=== PATIENT | female | born 1955 | race Caucasian/White ===

== ENCOUNTER 2022-01-01 13:30 | Outpatient (RCR) | payer BC, SELFPAY | END 2022-03-23 14:59 | disposition home or self-care (01) | PROVIDERS: PCP Family Medicine; Visit Provider Registered Nurse Neuroscience | DX: R53.1 Weakness (principal); Z51.89 Encounter for other specified aftercare | CPT/HCPCS: 97110; 97112; 97161 ==

== ENCOUNTER 2022-08-15 16:45 | Outpatient (RCR) | payer MEDICARE, BC, OTHER, SELFPAY ==
--- NOTE | 2022-06-22 10:46 | OT.OPOE ---
OT Outpatient Ortho Eval OT Outpatient Ortho Eval Start: 06/21/22 18:41 Freq: Status: Active Protocol: Document 06/22/22 07:26 AMB (Rec: 06/22/22 10:43 AMB [id number]) E-signed By Debbie Clifton, OTR/L, CLT, RUG CLEANER OT OP Ortho Eval Details Type Type Eval Complexity Low Insurance Information Insurance Information [employer] Outpatient History/Precautions Current Condition/Medical Diagnosis Referring Provider Dr Jovel Treatment Diagnosis Closed RUE wrist fx, CTR Date of Onset 05/04/22 (s/p 7 weeks) Other Conditions Pt slipped and fell on 05/04/22 while going out to get the mail. She was seen in ER and provided with a splint, ortho consult with orthopedics on and was placed in a cast which was replaced on 05/17/22 as it was loose. Cast was discontinued on 06/05/22. According to ortho notes, pt does have a 20 deg dorsal angulation which may impair ~ 2o deg of wrist flexion. Medical/Functional History Medical History Reviewed Yes Prior Level of Function/Mobility Full, pain-free use of her RUE Social History Employment Status Retired Oriented Mental Status No Concerns Ortho Subjective Subjective Subjective Pt states she is doing well, occasional soreness in her wrist, denies any paresthesia and has not been having any sharp pains. Pt uses her splint with activities. Pt states she has been sleeping without brace but then has more soreness in the morning and sometimes at night. Pain at is worst is 5/10 and usually in the morning when she sleeps without splint. Recommended she wear splint at night to see if this will help. Pain is 0/10 at rest. Elbow Goniometric Elbow Right Active Flexion (135-150 degrees) 150 Active Extension (0 degrees) 0 H Active Pronation 25 Active Supination 70 Wrist Goniometric Wrist Right Active Flexion (70-90 degrees) 38 L Active Extension (60-70 degrees) 43 L Active Ulnar Deviation (20-30 degrees) 15 L Active Radial Deviation (15-20 degrees) 20 Hand Pinch/Auto Inspector Strength Comments Comments 06/22/22 Pt demonstrates full composite fist and full opposition to DPC. No obvious swelling is noted. OT Objective Data Hand Hand Dominance Right OT Problems Problems Problems Decreased Strength,Decreased Range of Motion,Decreased Dexterity,Decreased Fine Motor ,Decreased Coordination, Lifting,Gripping,Pinching Other Problems Writing,Opening Containers, Dressing Patient Potential Good Assessment Assessment Assessment Pt presents to OT with pain, weakness, and limited AROM of the RUE which limits her abilities to complete ADLs and IADLs that require use of her RUE. Pt will benefit from skilled OT intervention to address impairments and restore full, pain-free use of her RUE. Occupational Therapy Treatment Plan - OP Potential Rehabilitation Potential Good Set Goals Goals Set with Patient Yes Goals Goals 1. Pt will be independent and compliant with HEP in order to resume full, pain-free use of the involved UE. 3 weeks 2. Pt will demonstrate full, pain-free AROM of the involved UE in order to improve ability to grasp and hold. 6 weeks 3. Pt will demonstrate pain- free behavioral technician and pinch strength comparable to the uninvolved side in order to improve functional grasp, hold, reach, and lifting ability needed to complete self-care, leisure tasks, and work activities. 8 weeks. Target Date 08/22/22 Progress set Treatment Plan Treatment Plan Evaluation,Edema Control,Joint Mobilization,Manual Therapy, Therapeutic Exercise, Therapeutic Activities,Self- Care/Home Management,Education Expected Frequency 1-2x Week Expected Duration 6-8 Weeks Certification Certification I Certify That: Therapy Services Provided, Therapy Plan Established, Therapy Plan Reviewed Recertification Information Recertification Information Initial Certification Date 06/22/22 Recertification Due Date 09/20/22 Reasons to Continue Skilled Therapy Initiated OT today to address pain, weakness, and limited AROM of the RUE following DR winston. Rehabilitation Potential Good Continued Plan of Care and Interventions Please see above Provider Signature Shows Agreement With POC & Medical Necessity Physician Comment/Change Comment or Changes Physician NPI Number #
== END 2022-10-26 16:17 | disposition home or self-care (01) ==
PROVIDERS: Visit Provider Orthopaedic Surgery Sports Medicine
DX: S62.101A Fracture of unspecified carpal bone, right wrist, initial encounter for closed fracture (principal); Z51.89 Encounter for other specified aftercare
CPT/HCPCS: 97110; 97140; 97165; X5282

== ENCOUNTER 2023-06-06 07:40 | Emergency (ER) | payer MEDICARE, BC, SELFPAY ==
[2023-06-06 08:00] VITALS: BP 132/81; PULSE 78; RESP 18; TEMP 36.9; O2SAT 98; BMI 25.1
--- NOTE | 2023-06-06 08:17 | XR_ITS ---
Patient: KELLY CHACKO Facility:?[facility] Patient ID:?[id number] Site Patient ID:?[id number]. Site :?[id number] Study:?XRay-Spine Lumbar 3V-06/06/2023 9:25:58 AM Ordering Physician:?CECIITER Final Report: INDICATION: Pain, no trauma. COMPARISON: None available. TECHNIQUE: Three views of the lumbar spine. FINDINGS: There is a lumbarization of the S1 vertebral body with an S1-S2 disc space and pseudoarticulation of the left S1 transverse process with the sacrum. Lumbar levocurvature with apex at L3-L4. Sagittal alignment is maintained. No definite acute fracture is visualized. Multilevel intervertebral disc space narrowing, which is most pronounced and moderate from L4-S1. Moderate lower lumbar facet arthropathy. Mild degenerative changes of the sacroiliac joints. Possible cholelithiasis. IMPRESSION: 1. 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 2. Moderate lower lumbar degenerative disc disease and facet arthropathy. Dictated by Saida Gan MD @ 06/06/2023 9:41:56 AM Signed by:?Saida Gan MD @06/06/2023 9:41:56 AM (Electronic Signature)
--- NOTE | 2023-06-06 08:18 | ED_ITS ---
HPI - General Adult General Chief complaint: Extremity Pain/Injury, Lower Stated complaint: R leg pain Time Seen by Provider: 06/06/23 08:13 History of Present Illness HPI narrative: Patient is a 67-year-old woman with history of sciatica presents with pain in her lumbar spine with radiation down her right leg. Her symptoms have been been present for the last 3 days. She has no bowel or bladder symptoms no fevers no chills. Her symptoms began after chiropractic manipulation. She be is able to ambulate without any difficulty and states the pain is moderate. Pain extends from the buttocks to the thigh to posterior to the right knee. She has no significant swelling or other significant findings. Related Data Home Medications Medication Instructions Recorded Confirmed pravastatin 40 mg tablet 40 mg PO QHS 05/04/22 06/06/23 venlafaxine 75 mg capsule,extended 75 mg PO DAILY 05/04/22 06/06/23 release 24 hr Allergies Allergy/AdvReac Type Severity Reaction Status Date / Time No Known Drug Allergies Allergy Verified 06/05/22 08:31 Review of Systems Status of ROS: Reports: 10 or more systems reviewed and unremarkable except as noted in History and below [facility] Medical History Tinnitus ?H93.19 - Tinnitus, unspecified ear (ICD-10) Ear problem ?H93.90 - Unspecified disorder of ear, unspecified ear (ICD-10) Altered mental status ?R41.82 - Altered mental status, unspecified (ICD-10) Social History Smoking Status: Never smoker How often do you have a drink containing alcohol: never AUDIT-C Alcohol total score: 0 Non-prescribed substance use: denies use Exam Narrative: Exam Narrative: EXAM GENERAL: Patient appears comfortable and well. EYES: No scleral icterus. LYMPH: No supraclavicular or cervical lymphadenopathy. SKIN: Visible skin seen during exam normal or with benign process only. EXT: No dependent lower extremity pedal edema. HEART: Regular rate and rhythm with no murmurs, rubs, or gallops. LUNGS: Clear to auscultation bilaterally with no crackles or wheezes. ABD: Soft, non tender, non distended. PSYCH: Good eye contact, speech is not pressured. Neurologic cranial nerves 2-12 grossly intact no focal defects I would say strength in the right lower extremity is 4/5. Const: Vital Signs, click to edit/add: Vital Signs - 24 hr 06/06/23 08:00 Temperature 98.5 F Pulse Rate [Pulse Oximeter] 78 Respiratory Rate 18 Blood Pressure [Ri ght Upper Arm] 132/81 Pulse Oximetry 98 Oxygen Delivery Me thod Room Air Course Course ED Course: X-ray lumbar spine pending. Vital Signs Vital signs: Initial Vital Signs Temperature 98.5 F 06/06/23 08:00 Temperature Source Temporal Artery Scan 06/06/23 08:00 Pulse Rate 78 06/06/23 08:00 Respiratory Rate 18 06/06/23 08:00 Blood Pressure 132/81 06/06/23 08:00 Blood Pressure Mean 98 06/06/23 08:00 Blood Pressure Position Sitting 06/06/23 08:00 Pulse Oximetry 98 06/06/23 08:00 Oxygen Delivery Method Room Air 06/06/23 08:00 Vital Signs Temperature 98.5 F 06/06/23 08:00 Pulse Rate 78 06/06/23 08:00 Respiratory Rate 18 06/06/23 08:00 Blood Pressure 132/81 06/06/23 08:00 Pulse Oximetry 98 06/06/23 08:00 Oxygen Delivery Method Room Air 06/06/23 08:00 Temperature 98.5 F 06/06/23 08:00 Pulse Rate 78 06/06/23 08:00 Respiratory Rate 18 06/06/23 08:00 Blood Pressure 132/81 06/06/23 08:00 Pulse Oximetry 98 06/06/23 08:00 Oxygen Delivery Method Room Air 06/06/23 08:00 Medications Administered Medications: Discontinued Medications Generic Name Dose Route Start Last Admin Trade Name Freq PRN Reason Stop Dose Admin Cyclobenzaprine HCl 10 mg 06/06/23 10:57 06/06/23 11:59 Cyclobenzaprine Hcl 10 Mg Tablet PO 06/06/23 10:58 10 mg ONCE ONE Administration Ketorolac Tromethamine 30 mg 06/06/23 08:29 06/06/23 08:44 Ketorolac 30 Mg/Ml Inj IM 06/06/23 08:30 30 mg ONCE ONE Administration Oxycodone HCl 5 mg 06/06/23 10:26 06/06/23 10:40 Oxycodone 5 Mg Tablet PO 06/06/23 10:27 5 mg ONCE ONE Administration Medical Decision Making MDM Narrative Medical decision making narrative: Patient is a 67-year-old woman who presents with right-sided sciatica. I did do an x-ray of her lumbar spine which showed nonspecific findings. Did proceed due to the severity of her symptoms with a MRI which showed L3-L4 bursitis with stenosis at L4-L5 with L5 impingement. Patient has been treated with oxycodone and cyclobenzaprine here in the emergency room with only modest improvement. At this time patient has no bowel or bladder symptoms no signs of cauda equina. I did make arrangements for him see her primary doctor back and get a referral for possible injection. In the interim I did place her on a short course of prednisone as well as oxycodone with no driving or using machinery. She is accompanied by her sister who can drive her today. Differential diagnosis includes but not limited to cauda equina disc herniations spondylolisthesis spondylitis. Discharge Plan Discharge Clinical Impression: Sciatica Patient Disposition: Home, Self-Care Condition: Stable Instructions: Sciatica (ED) Additional Instructions: Oxycodone prednisone as directed No driving. You have bursitis between L3 and L4 appear lumbar spine and stenosis between L4 and L5 with L5 impingement syndrome. I would recommend that she contact her doctor and schedule consult with Dr. Alphonse [facility]ule[facility] at [facility] for discussion of possible injection. Activity Level: No Restrictions Discharge Diet: Regular Prescriptions: No Action pravastatin 40 mg tablet 40 mg PO QHS venlafaxine 75 mg capsule,extended release 24hr 75 mg PO DAILY Follow Up/Referrals: Provider,Not a Local [Referring] - Stand Alone Forms: [employer] Info Instructions
[2023-06-06] MEDS: KETOROLAC 30 MG/ML inj IM (08:44)
--- NOTE | 2023-06-06 09:48 | MR_ITS ---
Patient: KELLY CHACKO Facility:?[facility] Patient ID:?[id number] Site Patient ID:?[id number]. Site :?[id number] Study:?MRI-Spine W/O-06/06/2023 12:02:22 PM Ordering Physician:MAURICIO EVANGELISTA Final Report: Indication: Low back pain radiating into the right leg Technique: Multiplanar, multisequence, MRI of the lumbar spine, obtained without contrast. Comparison: Lumbar spine x-ray from same day, MRI lumbar spine report 10/19/2021 Findings: S-shaped thoracolumbar curvature, with preserved lumbar lordosis. For numbering purposes, and to remain consistent with prior imaging, the S1 segment is transitional and partially lumbarized, followed by a rudimentary STIR hyperintense S1-2 intervertebral disc. Mild chronic anterior wedge configuration of L1, and mild chronic superior endplate deformity with superimposed Schmorl`s node at L2. No acute osseous abnormality. Unremarkable bone marrow signal. The conus medullaris terminates at L2. Trace fluid signal at the L3-4 interspinous space, suggestive of bursitis. 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 Included SI joints are unremarkable. T12-L1: Sagittal images demonstrate facet arthropathy without significant neural foraminal or spinal canal stenosis. L1-L2: Mild diffuse disc bulge, shallow left central protrusion. No significant neural foraminal or spinal canal stenosis. L2-L3: Mild diffuse disc bulge. No significant neural foraminal or spinal canal stenosis. L3-L4: Mild diffuse disc bulge, mild facet arthropathy, interspinous bursitis. Mild bilateral neural foraminal narrowing. Mild spinal canal narrowing. L4-L5: Mild diffuse disc bulge, mild facet arthropathy. Mild-moderate bilateral neural foraminal narrowing. Right lateral recess stenosis, potentially impinging the descending right L5 nerve root. No significant central spinal canal stenosis. L5-S1: Mild diffuse disc bulge, left asymmetric facet arthropathy. No right, mild-moderate left neural foraminal narrowing. Left lateral recess stenosis potential impingement of the descending left S1 nerve root. No central spinal canal stenosis. S1-S2: S1 lumbarization, rudimentary disc space, right asymmetric facet arthropathy. No significant neural foraminal or spinal canal stenosis. Impression: 1. For numbering purposes, the S1 segment is transitional and partially lumbarized, followed by rudimentary STIR hyperintense S1-S2 intervertebral disc. 2. Thoracolumbar S-shaped curvature. Lumbar spondylosis, not significantly progressed relative to 10/19/2021. 3. At L3-L4, mild bilateral neural foraminal narrowing, mild spinal canal narrowing, and interspinous bursitis. 4. At L4-L5, mild-moderate bilateral neural foraminal narrowing, and right lateral recess stenosis with potential right L5 nerve root impingement. 5. At L5-S1, mild-moderate left neural foraminal narrowing, with left lateral recess stenosis and potential left S1 nerve root impingement. Dictated by Nano De La Cruz MD @ 06/06/2023 12:22:16 PM Signed by:?Nano De La Cruz MD @06/06/2023 12:22:16 PM (Electronic Signature)
[2023-06-06] MEDS: OXYCODONE 5 MG TABLET PO (10:40)
[2023-06-06] MEDS: CYCLOBENZAPRINE HCL 10 MG TABLET PO (11:59)
== END 2023-06-06 13:41 | disposition home or self-care (01) ==
PROVIDERS: Emergency Provider Internal Medicine; PCP Physician Assistant Medical
DX: M54.41 Lumbago with sciatica, right side (principal)
CPT/HCPCS: 72100; 72148; 96372; 99283; 99284; A9270; J1885

== ENCOUNTER 2023-07-02 08:32 | Outpatient (CLI) | payer MEDICARE, BC, SELFPAY | END 2023-07-02 08:33 | disposition home or self-care (01) | LOC: INJ CL 08:32 | PROVIDERS: PCP Physician Assistant Medical; Visit Provider Family Medicine | DX: M54.16 Radiculopathy, lumbar region (principal); M51.36 Other intervertebral disc degeneration, lumbar region | CPT/HCPCS: 62323; J0702; Q9966 ==